=== PATIENT | male | born 1980 | race African-American/Black ===

== ENCOUNTER 2016-10-17 20:08 | Emergency (ER) | payer OTHER ==
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
== END 2016-10-17 21:46 | disposition home or self-care (01) ==
LOC: CFTX 20:08
DX: S72.91XD Unspecified fracture of right femur, subsequent encounter for closed fracture with routine healing (principal); F17.210 Nicotine dependence, cigarettes, uncomplicated; X58.XXXD Exposure to other specified factors, subsequent encounter
CPT/HCPCS: 73552; 99283